=== PATIENT | male | born 1955 | race Two or more races ===

== ENCOUNTER 2018-05-13 16:10 | Inpatient (IN) | payer OTHER ==
[2018-05-13] MEDS ORDERED: ASPIRIN 81 MG CHEWABLE TAB PO ONE (16:22)
[2018-05-13] MEDS ORDERED: NS 500 ML IV ONE (16:22)
[2018-05-13] MEDS ORDERED: fentaNYL 100 MCG/2 ML INJ IVP ONE (16:27)
--- NOTE | 2018-05-13 16:59 | EDPHY ---
H & P Stated Complaint: afib and multi s/s since Friday.neck/shoulder pain since Friday Time Seen by Provider: 05/13/18 16:14 HPI/ROS: CHIEF COMPLAINT: Neck pain, shoulder pain, leg weakness, jittery HISTORY OF PRESENT ILLNESS: This is a 63-year-old male who was diagnosed with new onset atrial fibrillation today when he went to see his primary care physician. His physician office visit was prompted by complaints of pain across his posterior neck and shoulders which had been present for 6 days, the along with numbness and tingling into his bilateral arms, left greater than right. Patient had tried ibuprofen, Epson salt, heating pad, and ice physician' s office today, they noted an irregularly irregular heart rate and diagnosis atrial fibrillation on EKG. Patient was given referral to [facility], placed on Lovenox as well as Coumadin, and also had x-rays of his cervical spine obtained to evaluate for degenerative disease. He returns to the emergency department this afternoon reporting that while at home the pain in his back and shoulders increased significantly, he felt jittery , and he had significant numbness in his left upper extremity. He denies any chest pain or shortness of breath. He denies any nausea, vomiting , or diarrhea. No headache. No visual complaints. He denies any lightheadedness. REVIEW OF SYSTEMS: A comprehensive 10 system review of systems was reviewed and is otherwise negative aside from elements mentioned in the history of present illness. PAST MEDICAL HISTORY: Hypertension, on lisinopril, hydrochlorothiazide, and amlodipine. Hypothyroidism. SOCIAL HISTORY: Former cigar smoker. Patient is retired. 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 VITAL SIGNS Reviewed by me. GENERAL: Well-developed, well-nourished, appears uncomfortable. HEENT: Atraumatic. Eyes: No icterus, no injection. Mouth: moist mucous membranes. No erythema or lesions. Neck: supple with no adenopathy. No JVD. No midline tenderness palpation. LUNGS: Clear to auscultation bilaterally, no wheezes, rhonchi or rales. CARDIAC: Irregularly irregular. No rubs murmurs or gallops auscultated. Femoral pulses are 2+ and equal bilaterally. ABDOMEN: Soft, nontender, nondistended, bowel sounds normal. BACK: No CVA tenderness. EXTREMITIES: No trauma. No edema. Range of motion is normal throughout. NEURO: Alert and oriented x3. 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 Sensation intact to light touch throughout. Patient reports earlier today he was shuffling and his legs felt like they were paralyzed, currently, moving all extremities x4 without difficulty. SKIN: Warm and dry, no rash. PSYCHIATRIC: Normal mentation, uncomfortable when he has increased pain in his shoulders. - Medical/Surgical History Hx Cardiac Disease: Yes Other PMH: Afib new 2017. HTN. Hypothyroid Constitutional: Initial Vital Signs Temperature (C) 36.4 C 05/13/18 16:16 Heart Rate 115 H 05/13/18 16:16 Respiratory Rate 22 H 05/13/18 16:16 Blood Pressure 133/94 H 05/13/18 16:16 O2 Sat (%) 95 05/13/18 16:16 O2 Delivery Mode Nasal Cannula O2 (L/minute) 2 Allergies/Adverse Reactions: No Known Allergies Allergy (Unverified 05/13/18 16:26) Home Medications: Medication Instructions Recorded Coumadin 05/13/18 Enoxaparin 05/13/18 Hydrochlorothiazide 05/13/18 Levothyroxine Sodium 05/13/18 Lisinopril 05/13/18 amLODIPine BESYLATE 05/13/18 Medical Decision Making - Diagnostics EKG Interpretation: 12-LEAD EKG: Please see the full report in [facility]. My interpretation: Atrial fibrillation, borderline T-wave abnormalities. Imaging Results: Imaging Impressions Chest X-Ray 05/13/18 16:23 Impression: 1. No acute pulmonary disease. 2. No pneumothorax. Chest/Thorax CTA 05/13/18 17:08 Impression: 1. Normal caliber thoracic and abdominal aorta. No aneurysm or dissection. 2. Minimal atherosclerotic plaque in the thoracic aorta and mild to moderate atherosclerotic plaque in the abdominal aorta. No flow-limiting stenosis or penetrating ulcer. 3. Widely patent visceral and pelvic arteries. 4. Clear lungs. No acute pulmonary process or explanation for pain. 5. Minimal hepatic steatosis. 6. Diverticulosis descending colon. 7. No acute intraabdominal process. Findings discussed with Emergency Department physician, Yvette Pierre M.D., on May 13, 2018 at 1755. ED Course/Re-evaluation: 63-year-old gentleman presenting to the emergency department with newly diagnosed atrial fibrillation. His primary complaint involves discomfort across the posterior upper shoulders, base of his neck. He also reports significant numbness into the right and left hands, left greater than right. He also reports that when he stood up at home he had numbness and tingling radiating down the back of both legs. Evaluation the emergency department: EKG demonstrating atrial fibrillation with a rate of 110s. Patient's O2 sat on room air was 95%. He was placed on 2 L of O2 and given aspirin 324 mg. Patient's bedside troponin was 0. Patient's heart rate diminished on its own to a median of 90s to 100. Patient reports the discomfort in his neck, shoulders, and arm was decreasing. Chest x-ray demonstrates no wide mediastinum. Because of the patient's history of new onset cardiac findings in association with shoulder, arm pain, and neurologic symptomatology, CT scan to evaluate for dissection was ordered. Patient appears significantly uncomfortable at various points during the evaluation. CT scan was negative for obstruction and negative for pulmonary emboli. Patient will be admitted to [facility], PCU, for ongoing monitoring of his atrial fibrillation, serial troponins, completion of a cardiac evaluation to include echocardiogram, as well as further evaluation of his relatively acute neck, shoulder pain and arm pain. Course discussed with Dr. Carl Figueroa. Differential Diagnosis: Differential diagnoses for the patient's symptom complex was considered including but not limited to atrial fibrillation with RVR, anginal equivalent, dissection, disc herniation, acute coronary syndrome. Consult/Admit Bed Type: Dr. Carl Figueroa, PCU - Data Points Laboratory Results: 05/13/18 05/13/18 05/13/18 16:25 16:24 16:19 POC Sodium 141 mEq/L mEq/L (135-145) POC Potassium 4.3 mEq/L mEq/L (3.3-5.0) POC Chloride 103.0 mEq/L mEq/L (97-110) POC Total CO2 23 mEq/L mEq/L (22-31) POC BUN 16 mg/dL mg/dL (7-23) POC Creatinine 0.8 mg/dL mg/dL (0.7-1.3) POC Glucose 107 mg/dL H mg/dL (70-100) POC Calcium 9.4 mg/dL mg/dL (8.5-10.4) POC Troponin I 0.00 ng/mL ng/mL (0.00-0.08) NT-Pro-B Natriuret Pep Pending Medications Given: Discontinued Medications Aspirin (Aspirin) 324 mg PO EDNOW ONE Stop: 05/13/18 16:23 Last Admin: 05/13/18 16:27 Dose: 324 mg Fentanyl (Sublimaze) 50 mcg IVP EDNOW ONE Stop: 05/13/18 16:28 Last Admin: 05/13/18 16:30 Dose: Not Given Sodium Chloride (Ns) 500 mls @ 1,000 mls/hr IV EDNOW ONE PRN Reason: Protocol Stop: 05/13/18 16:51 Last Admin: 05/13/18 16:34 Dose: 500 mls Point of Care Test Results: CBC CBC Collection Date 05/13/18 CBC Collection Time 16:19 WBC 11.6 RBC 4.95 HGB 16.8 HCT 46.6 PLT 329 Neut # 7.5 Neut 64.7 LYMPH # 3.4 LYMPH 29.4 Other WBC # 0.7 Other WBC 5.9 MCV 94.1 Chemistry 05/13/18 05/13/18 16:25 16:24 POC Sodium 141 mEq/L mEq/L (135-145) POC Potassium 4.3 mEq/L mEq/L (3.3-5.0) POC Chloride 103.0 mEq/L mEq/L (97-110) POC Total CO2 23 mEq/L mEq/L (22-31) POC BUN 16 mg/dL mg/dL (7-23) POC Creatinine 0.8 mg/dL mg/dL (0.7-1.3) POC Glucose 107 mg/dL H mg/dL (70-100) POC Calcium 9.4 mg/dL mg/dL (8.5-10.4) POC Troponin I 0.00 ng/mL ng/mL (0.00-0.08) D-Dimer D-Dimer Collection Date 05/13/18 D-Dimer Collection Time 16:19 D-Dimer (ng/ml) Less than 100 Departure - [facility] Clinical Impression: Left arm numbness, r/o ACS Atrial fibrillation Qualifiers: Atrial fibrillation type: unspecified Qualified Code(s): I48.91 - Unspecified atrial fibrillation Shoulder pain, bilateral Qualifiers: Chronicity: acute Qualified Code(s): M25.511 - Pain in right shoulder; M25.512 - Pain in left shoulder; M25.512 - Pain in left shoulder Condition: Fair
[2018-05-13] MEDS ORDERED: IOPAMIDOL (ISOVUE 370) 100 ML BTL IV ONE (17:12)
[2018-05-13] MEDS ORDERED: PROMETHAZINE HCL 25 MG/ML INJ IVP PRN (20:02)
[2018-05-13] MEDS ORDERED: ONDANSETRON 4 MG/2 ML VIAL IVP PRN (20:02)
[2018-05-13] MEDS ORDERED: oxyCODONE IR 5 MG TAB PO PRN (20:02)
[2018-05-13] MEDS ORDERED: ONDANSETRON DISINTEGRATING 4 MG TAB PO PRN (20:02)
[2018-05-13] MEDS ORDERED: ACETAMINOPHEN 325 MG TAB PO PRN (20:02)
[2018-05-13] MEDS ORDERED: ENOXAPARIN 80 MG/0.8 ML SYR SC SCH (21:45)
[2018-05-13 21:59] LABS: PLATELET COUNT 304 10^3/uL (150-400)
[2018-05-13] MEDS ORDERED: ENOXAPARIN 100 MG/ML SYR SC SCH (22:30)
--- NOTE | 2018-05-13 22:40 | PDGENHP ---
History and Physical - Chief Complaint neck/shoulder pain/weakness - History of Present Illness 63 yo M with hx of htn, hypothyroidism presenting with c/o neck, shoulder and back pain with numbness and tingling in bilateral hands, left greater than right , and numbness and weakness of bilateral legs since Friday. He notes these sxs have been coming and going since Friday, but more persistent in the last several days. He finally decided to go see his PCP today and was noted to be in A fib with rates in the 110s. This was a new diagnosis for him and he was started on coumadin/LMWH and had an appt for an echo and to see cardiology set up. Unfortunately, when he went home he continued to have these sxs and he was really unable to walk, he notes he was "dragging his legs" and continued ot have intermittent tingling in his hands and down the back of his legs. He notes he does not have chronic neck or back pain, he has not had any injury recently, has no changes in urination or BM. He has not had fever or chills, denies chest pain or sob. He has never had similar issues in the past. Currently other than feeling generally weak he notes that a lot of these sxs have improved. History Information - Allergies/Home Medication List Allergies/Adverse Reactions: No Known Allergies Allergy (Unverified 05/13/18 16:26) Home Medications: Enoxaparin [Lovenox 100 MG (*)] 100 mg SQ Q12H 05/13/18 [Last Taken Unknown] Hydrochlorothiazide [HCTZ (*)] 25 mg PO DAILY 05/13/18 [Last Taken 05/13/18] Levothyroxine [Synthroid 112 mcg (*)] 112 mcg PO DAILY06 05/13/18 [Last Taken ] Lisinopril [Zestril 40 mg (*)] 40 mg PO DAILY 05/13/18 [Last Taken 05/13/18] Warfarin Sodium [Coumadin 5MG (*)] 5 mg PO DAILY16 05/13/18 [Last Taken Unknown] amLODIPine BESYLATE [Norvasc 10 mg (*)] 10 mg PO DAILY 05/13/18 [Last Taken ] I have personally reviewed and updated: family history, medical history, social history, surgical history - Past Medical History atrial fibrillation (new diagnosis), hypertension Additional medical history: hypothyroid - Surgical History Reports: no pertinent surgical hx - Family History Additional family history: brother with valvular heart disease - Social History Smoking Status: Current every day smoker Tobacco Use: Cigar Alcohol Use: Rarely Drug Use: None Additional social history: , 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 [employer] Review of Systems Review of Systems: ROS: 10pt was reviewed & negative except for what was stated in HPI & below Physical Exam Physical Exam: Temp Pulse Resp BP Pulse Ox 36.6 C 90 18 146/96 H 99 05/13/18 20:06 05/13/18 20:06 05/13/18 20:06 05/13/18 20:06 05/13/18 20:06 O2 (L/minute) 2 Constitutional: no apparent distress, appears nourished Eyes: PERRL Ears, Nose, Mouth, Throat: moist mucous membranes, hearing normal Cardiovascular: no murmur, rub, or gallop, irregularly irregular, No edema Respiratory: no respiratory distress, no rales or rhonchi Gastrointestinal: normoactive bowel sounds, soft, non-tender abdomen Genitourinary: no bladder tenderness Skin: warm, normal color Musculoskeletal: full muscle strength Neurologic: AAOx3 Psychiatric: interacting appropriately, not anxious, not encephalopathic Lab Data & Imaging Review 05/13/18 20:52 05/13/18 20:52 WBC 10.28 10^3/uL (3.80-9.50) H 05/13/18 20:52 RBC 4.74 10^6/uL (4.40-6.38) 05/13/18 20:52 Hgb 15.5 g/dL (13.7-17.5) 05/13/18 20:52 Hct 44.8 % (40.0-51.0) 05/13/18 20:52 MCV 94.5 fL (81.5-99.8) 05/13/18 20:52 MCH 32.7 pg (27.9-34.1) 05/13/18 20:52 MCHC 34.6 g/dL (32.4-36.7) 05/13/18 20:52 RDW 13.1 % (11.5-15.2) 05/13/18 20:52 Plt Count 304 10^3/uL (150-400) 05/13/18 20:52 MPV 9.3 fL (8.7-11.7) 05/13/18 20:52 Neut % (Auto) 56.7 % (39.3-74.2) 05/13/18 20:52 Lymph % (Auto) 32.9 % (15.0-45.0) 05/13/18 20:52 [place] % (Auto) 6.2 % (4.5-13.0) 05/13/18 20:52 Eos % (Auto) 3.3 % (0.6-7.6) 05/13/18 20:52 Baso % (Auto) 0.5 % (0.3-1.7) 05/13/18 20:52 Nucleat RBC Rel Count 0.0 % (0.0-0.2) 05/13/18 20:52 Absolute Neuts (auto) 5.83 10^3/uL (1.70-6.50) 05/13/18 20:52 Absolute Lymphs (auto) 3.38 10^3/uL (1.00-3.00) H 05/13/18 20:52 Absolute Monos (auto) 0.64 10^3/uL (0.30-0.80) 05/13/18 20:52 Absolute Eos (auto) 0.34 10^3/uL (0.03-0.40) 05/13/18 20:52 Absolute Basos (auto) 0.05 10^3/uL (0.02-0.10) 05/13/18 20:52 Absolute Nucleated RBC 0.00 10^3/uL (0-0.01) 05/13/18 20:52 Immature Gran % 0.4 % (0.0-1.1) 05/13/18 20:52 Immature Gran # 0.04 10^3/uL (0.00-0.10) 05/13/18 20:52 POC Sodium 141 mEq/L (135-145) 05/13/18 16:25 Sodium 133 mEq/L (135-145) L 05/13/18 20:52 POC Potassium 4.3 mEq/L (3.3-5.0) 05/13/18 16:25 Potassium 4.2 mEq/L (3.3-5.0) 05/13/18 20:52 POC Chloride 103.0 mEq/L (97-110) 05/13/18 16:25 Chloride 102 mEq/L (97-110) 05/13/18 20:52 Carbon Dioxide 24 mEq/l (22-31) 05/13/18 20:52 POC Total CO2 23 mEq/L (22-31) 05/13/18 16:25 Anion Gap 7 mEq/L (6-14) 05/13/18 20:52 POC BUN 16 mg/dL (7-23) 05/13/18 16:25 BUN 19 mg/dL (7-23) 05/13/18 20:52 Creatinine 0.8 mg/dL (0.7-1.3) 05/13/18 20:52 POC Creatinine 0.8 mg/dL (0.7-1.3) 05/13/18 16:25 Estimated GFR > 60 05/13/18 20:52 Glucose 95 mg/dL (70-100) 05/13/18 20:52 POC Glucose 107 mg/dL (70-100) H 05/13/18 16:25 POC Calcium 9.4 mg/dL (8.5-10.4) 05/13/18 16:25 Calcium 9.0 mg/dL (8.5-10.4) 05/13/18 20:52 POC Troponin I 0.00 ng/mL (0.00-0.08) 05/13/18 16:24 Troponin I < 0.012 ng/mL (0.000-0.034) 05/13/18 20:52 NT-Pro-B Natriuret Pep 250 pg/mL (0-125) H 05/13/18 16:19 TSH 4.430 uIU/mL (0.465-4.680) 05/13/18 20:52 Urine Color YELLOW 05/13/18 21:55 Urine Appearance CLEAR 05/13/18 21:55 Urine pH 5.0 (5.0-7.5) 05/13/18 21:55 Ur Specific [place] > 1.035 (1.002-1.030) H 05/13/18 21:55 Urine Protein NEGATIVE (NEGATIVE) 05/13/18 21:55 Urine Ketones NEGATIVE (NEGATIVE) 05/13/18 21:55 Urine Blood NEGATIVE (NEGATIVE) 05/13/18 21:55 Urine Nitrate NEGATIVE (NEGATIVE) 05/13/18 21:55 Urine Bilirubin NEGATIVE (NEGATIVE) 05/13/18 21:55 Urine Urobilinogen NEGATIVE EU (0.2-1.0) 05/13/18 21:55 Ur Leukocyte Esterase NEGATIVE (NEGATIVE) 05/13/18 21:55 Urine Glucose NEGATIVE (NEGATIVE) 05/13/18 21:55 Visualized and Interpreted Chest x-ray results: Yes Chest X-Ray results: no infiltrate Visualized and Interpreted imaging results: Yes Interpretation: CTA chest/abdomen: no dissection, no PE Visualized and Interpreted EKG results: Yes EKG additional interpertation: atrial fibrillation, rate in 100s Assessment & Plan Assessment: Atrial fibrillation (Acute) Shoulder pain, bilateral (Acute) Left arm numbness (Acute) 63 yo M with new dx of a fib presenting with generalized weakness, bilateral upper and lower extremity numbness/tingling and neck and shoulder pain # a fib: with rates in the low 100s but suspect this is the etiology for patients diffuse sxs, plan is for monitoring on tele, serial trops and ecg, echocardiogram in the am. Will continue lovenox which was ordered by his PCP but not started yet and will ask for cardiology consult. Will keep patient NPO after MN in case CV felt appropriate, started on low dose metoprolol for improved rate control. # weakness/numbness/gait instability/neck pain: with a very reassuring neuro exam with strength/sensation and coordination intact and symmetrical making the possibility of a primary neurologic issue less likely. Given that the numbness is bilateral (though left more than right) and both upper and lower extremity it seems unlikely to be due to nerve impingement etc either. At this point, suspect this could be an unusual symptomatic presentation of a fib, no s/s of infection but will get UA, w/u for a fib as above. If treatment of a fib does not resolve these sxs would consider further imaging and/or neuro consult. # HTN: will resume home medications, BP only mildly elevated so will need to monitor with addition of BB # hypothyroid: continue lt4, will get TSH # observation status Patient new to my care. Old records reviewed and summarized as above. Care plan reviewed with ER doctor as above. Further hx obtained from patients present at bedside.
[2018-05-13] MEDS: METOPROLOL TARTRATE 25 MG TAB PO SCH (22:57)
[2018-05-14] MEDS: ENOXAPARIN 100 MG/ML SYR SC SCH ×2 (09:22→21:25)
[2018-05-14] MEDS: METOPROLOL TARTRATE 25 MG TAB PO SCH ×2 (09:24→21:24)
--- NOTE | 2018-05-14 10:36 | ECHO ---
[email or web address] [address] [address] Main: [phone] Fax: Transthoracic Echocardiogram Name: KIN EDMONDS MR#: [id number] Study Date: 05/14/2018 Study Time: 08:16 AM Date of : 1955 Age: 63 year(s) Height: 162.6 cm (64 in.) Weight: 89.81 kg (198 lb.) BSA: 1.95 m2 Gender: Male Examination: Echo Indication: New onset of atrial fibrillation Image Quality: Contrast: Requested by: Carl Tate BP: 115 mmHg/77 mmHg Heart Rate: Rhythm: Indication: New onset of atrial fibrillation Procedure Staff [place] Packer: Milad Gonzalez RDCS Reading Physician: Binh Amado MD Requesting Provider: Conclusions: Normal size left ventricle. Mild concentric LV hypertrophy. The ejection fraction is estimated to be 45-50 %. No regional wall motion abnormality. Normal RV function. There is no aortic valve regurgitation. No aortic valve stenosis is present. pt was in atrial fibrillation throughtout study. Measurements: Chambers Valvular Assessment AV/MV Valvular Assessment TV/PV Normal Normal Normal Name Value Range Name Value Range Name Value Range Ao Awa (MM): 3.4 cm (2.2 cm-3.7 AV Vmax: 1.15 m/s (1 m/s-1.7 TR Vmax: 2.01 mm/s ( - ) cm) m/s) TR PGmax: 16 mmHg ( - ) IVSd (2D): 1.2 cm (0.6 cm-1.1 AV maxP mmHg ( - ) syst. PAP: 21 mmHg ( - ) cm) LVOT Vmax: 0.62 m/s (0.7 m/s-1.1 PV Vmax: 0.69 m/s (0.6 m/s-0.9 LVDd (2D): 4.4 cm (4.2 cm-5.9 m/s) m/s) cm) MV E Vmax: 0.74 m/s ( - ) PV PGmax: 2 mmHg ( - ) LVDs (2D): 3.2 cm (2.1 cm-4 cm) LVPWd (2D): 1.2 cm (0.6 cm-1 cm) LVEF (MM): 46 (>=55 %) Visual EF: 45 % EF Range: 45-50 % Continued Measurements: Chambers Valvular Assessment AV/MV Valvular Assessment TV/PV Patient: KIN EDMONDS Study Date: 05/14/2018 Page 1 of 2 08:16 AM Name Value Name Value Name Value LADs Lon.4 cm MV E' Septal: 0.07 m/s CVP (est.): 5 mmHg LA Area: 23.5 cm2 MV E/E' Septal: 10.30 LA Volume: 61 ml MV E/E' Lateral: 7.80 LA Volume Index: 31.3 ml/m2 RA Area: 16.4 cm2 Findings: Left Ventricle: Normal size left ventricle. Mild concentric LV hypertrophy. Mildly to moderately reduced systolic funtion. The ejection fraction is estimated to be 45-50 %. The ejection fraction is visually estimated to be 45 %. No regional wall motion abnormality. Normal diastolic LV function. Right Ventricle: Normal size right ventricle. Normal RV function. Left Atrium: The left atrium is normal in size. Right Atrium: The right atrium is normal in size. Mitral Valve: The mitral valve is normal in appearance and function. There is no significant mitral valve regurgitation. Aortic Valve: Aortic valve is not well visualized. There is no aortic valve regurgitation. No aortic valve stenosis is present. Tricuspid Valve: The tricuspid valve is normal in appearance and function. Pulmonic Valve: The pulmonic valve is normal in appearance and function. Aorta: The aorta is normal. Pericardium: No pericardial effusion. Exam Comments: pt was in atrial fibrillation throughtout study. (No Signature Object) Patient: KIN EDMONDS Study Date: 05/14/2018 Page 2 of 2 08:16 AM [id number]
--- NOTE | 2018-05-14 10:36 | GHP ---
DATE OF ADMISSION: 05/13/2018 CHIEF COMPLAINT: Atrial fibrillation. HISTORY OF PRESENT ILLNESS: This is a 63-year-old gentleman with no known history of atrial fibrilla tion. He was seen yesterday in his physician's office for diffuse muscle aches and pains and tinglin g and an EKG confirmed atrial fibrillation. He was to begin Lovenox and Coumadin tomorrow with outpa tient referral to Cardiac Clinic at [facility]. However, when he got home he had with sounds like spasm in his neck, arms, and legs, came to the emergency room. EKG confirmed atrial fibrillation. He was admitted, is doing well. His BNP is normal. His cardiac enzymes are normal. He has been in atrial fibrillation overnight. In speaking to him, he had an event a month ago of dehydration, but c annot otherwise confirm any syncope or CHF signs or symptoms. He feels better today. He received hi s Lovenox and his Coumadin. In speaking to him, he has chronic baseline arthritis, but just over the weekend started to feel worse with these diffuse muscle aches and pains. Today he is feeling better . He had a CT of the abdomen, chest, and thorax, which were not unremarkable for any blood clots. Antione galdamez has had no CVAs or other issues. I spoke about our options. At this point, we will continue antic oagulation. He is under good rate control at this time. We will consider ARABELLA cardioversion. Star poon, I would like to get a transthoracic echocardiogram prior. He denies any known CAD. PAST MEDICAL HISTORY: Hypothyroidism. REVIEW OF SYSTEMS: Negative for any GI, , blood loss, or other issues. FAMILY HISTORY: Apparently his brother has a bicuspid aortic valve. SOCIAL HISTORY: He smokes cigars. He is retired from the [employer] service where he walked [employer]. He continues to work part-time at [employer] PHYSICAL EXAMINATION: VITAL SIGNS: Blood pressure is 130/88, and his pulse rate in the 70s, and it is atrial fibrillation. GENERAL: He is an elderly male in no acute distress. Mouth was moist. NEC K: Supple. LUNGS: Clear to auscultation. CARDIOVASCULAR: Regular rate and rhythm. I could not h ear loud murmur, gallop, rub. ABDOMEN: Soft, nontender. MUSCULOSKELETAL: No cyanosis, clubbing, o r edema. ASSESSMENT AND PLAN: 1. Atrial fibrillation, unknown chronicity. Patient has recently been started on Lovenox and 1st do se of Coumadin. 2. Patient is hemodynamically stable without symptoms. At this point, we will start off with a rose sthoracic echocardiogram for further evaluation. Would consider transesophageal echocardiogram cardi oversion if he does not convert on current medications. The timing of this can be decided depending on how he is feeling. 3. History of diffuse arthritis and muscle aches and pains. This will be followed by primary care hui victor. Further care pending clinical course. /[id number]/MODL
--- NOTE | 2018-05-14 11:27 | ASMTCMCOM ---
CM Note CM Note Notes: Pts case discussed in tx rounds. Pt is a 63 y/o man admitted for new afib. PT has been ordered and awaiting recommendations. Pt may have a possible cardioversion tomorrow. Needs are TBD at this time. CM to follow. Plan: TBD Date Signed: 05/14/2018 11:26 AM Electronically Signed By:ANGIE Salazar
--- NOTE | 2018-05-14 13:36 | HOSPPROG ---
Hospitalist Progress Note Assessment/Plan: * New onset afib - tachy taj with HR ranging 40-120 -continue low dose metoprolol -lovenox bridge to warfarin -ARABELLA/cardioversion in am * Acute systolic CHF - EF 45% * UE numbness and weakness with cervical neck pain -check MRI C-spine * HTN -holding norvasc, lisinopril, HCTZ -BP running low - ? too much meds causing weakness * Obesity BMI 34 Subjective: No new complaints. Objective: Vital Signs Temp Pulse Resp BP Pulse Ox 36.4 C 86 18 109/77 96 05/14/18 12:38 05/14/18 12:38 05/14/18 12:38 05/14/18 12:38 05/14/18 12:38 Laboratory Results 05/13/18 20:52 05/13/18 20:52 05/13/18 05/14/18 05/15/18 05:59 05:59 05:59 Intake Total 550 Balance 550 EKG viewed, my personal interpretation is - afib, no ischemic change CTA chest/abd - normal vessels - Physical Exam Constitutional: no apparent distress, appears nourished, not in pain Cardiovascular: irregularly irregular, tachycardia, bradycardia, No systolic murmur, No edema Respiratory: no respiratory distress, no rales or rhonchi, clear to auscultation Gastrointestinal: normoactive bowel sounds, soft, non-tender abdomen, no palpable masses Skin: no rashes or abrasions, no fluctuance, no induration Neurologic: AAOx3, sensation intact bilaterally Psychiatric: interacting appropriately, not anxious, not encephalopathic, thought process linear ICD10 Worksheet Patient Problems: Problems Problem Status Onset Atrial fibrillation Acute Left arm numbness Acute Shoulder pain, bilateral Acute
--- NOTE | 2018-05-14 15:45 | PDMN ---
Medical Necessity Medical necessity: Change to IP, as of 05/14/18, per MD & MCG [id number]; los >2 mn for ongoing management of new-onset AFIB w/tachycardia/bradycardia (HR ranging from 40-120) & upper extremity numbness/weakness; requiring further cardiac monitoring, ARABELLA/cardioversion, MRI, med management & therapies; hx CHF, HTN
[2018-05-14] MEDS ORDERED: WARFARIN SODIUM 5 MG TAB PO SCH (16:00)
--- NOTE | 2018-05-14 23:04 | CPEKG ---
Test Reason : OPEN Blood Pressure : / mmHG Vent. Rate : 102 BPM Atrial Rate : 099 BPM P-R Int : 052 ms QRS Dur : 090 ms QT Int : 376 ms P-R-T Axes : 000 -25 017 degrees QTc Int : 490 ms Atrial fibrillation Borderline left axis deviation Borderline T wave abnormalities Borderline prolonged QT interval Confirmed by Yvette Pierre ([id number]) on 05/14/2018 11:04:22 PM Referred By: Confirmed By:Yvette Pierre
[2018-05-15 04:25] LABS: INR 1.12 (0.83-1.16); PROTIME(PATIENT) 14.6 SEC (12.0-15.0)
[2018-05-15] MEDS: LEVOTHYROXINE 112 MCG TAB PO SCH (06:03)
--- NOTE | 2018-05-15 08:54 | CPEKG ---
Test Reason : OPEN Blood Pressure : / mmHG Vent. Rate : 074 BPM Atrial Rate : 130 BPM P-R Int : 152 ms QRS Dur : 092 ms QT Int : 389 ms P-R-T Axes : 268 -13 -08 degrees QTc Int : 432 ms Atrial fibrillation Confirmed by Harley Jimenez ([id number]) on 05/15/2018 8:54:25 AM Referred By: Confirmed By:Harley Jimenez
[2018-05-15] MEDS: LISINOPRIL 40 MG TAB PO SCH (09:44)
[2018-05-15] MEDS: METOPROLOL TARTRATE 25 MG TAB PO SCH ×2 (09:45→21:14)
--- NOTE | 2018-05-15 11:48 | SOAPPROG ---
[facility] Progress Note Assessment/Plan: Assessment:1. atrial fib..unclear etiology..hemodynamically stable ...no recent mi...rate controlled..needs urgent neurosurgical surgery ...lovenox held today in anticipation of surgery Plan:1. neuro surgery as they plan..can follow afib post op and as out pt 05/15/18 11:52 Subjective: pt is asymptomatic from cv standpoint,,,neg trop and low normal lvef with minimmal bnp elevation pt should be at low to mod risk for cardiac complications.....d/w pt and Objective: Vital Signs Temp Pulse Resp BP Pulse Ox 36.4 C 84 15 126/83 H 96 05/15/18 07:26 05/15/18 07:26 05/15/18 07:26 05/15/18 09:45 05/15/18 07:26 05/14/18 05/15/18 05/16/18 05:59 05:59 05:59 Intake Total 450 Balance 450 PT 14.6 SEC (12.0-15.0) 05/15/18 04:00 INR 1.12 (0.83-1.16) 05/15/18 04:00 Physical Exam - Physical Exam Respiratory: lungs clear Cardiac/Chest: regular rate, rhythm ICD10 Worksheet Patient Problems: Problems Problem Status Onset Atrial fibrillation Acute Left arm numbness Acute Shoulder pain, bilateral Acute
[2018-05-15] MEDS ORDERED: BACITRACIN 50,000 UNITS/10 ML SYR IRR ONE (13:37)
[2018-05-15] MEDS ORDERED: THROMBIN (BOVINE) 20,000 UNIT VIAL TP ONE (13:37)
[2018-05-15] MEDS ORDERED: CHLORHEXIDINE GLUC HIBICLENS 118 ML BTL TP ONE (13:38)
--- NOTE | 2018-05-15 13:48 | GCON ---
DATE OF CONSULTATION: 05/15/2018 REASON FOR CONSULTATION: Left arm numbness and gait instability. HOSPITAL COURSE, HISTORY, AND MAJOR MEDICAL FINDINGS: The patient is a 63-year- old gentleman who presented to [facility] Emergency Room on 05/13/2018 with neck pain, shoulder pain, back pain, and numbness and tingling to his bilateral hands, left greater than right, numbness and weakness into his bilateral legs since Friday. He notes that these symptoms had been coming and going prior to Friday, but it had been more persistent over the last few days. He went to his primary care office on the and was noted to be in atrial fibrillation in the one-teens. 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 Unfortunately, when he went home, this intermittent tingling in legs continued, and he was feeling generally weak. The patient has had some urinary dribbling, but denies any groin numbness, trung incontinence, or any stool incontinence. REVIEW OF SYSTEMS: Review of systems is negative, other than what is stated in the HPI. Please see pertinent negatives and pertinent positives. PAST MEDICAL HISTORY: Significant for hypertension, hyperthyroidism, and a new diagnosis of atrial fibrillation. PAST SURGICAL HISTORY: Negative. FAMILY HISTORY: The patient has valvular heart disease in his brother. SOCIAL HISTORY: The patient is a current everyday smoker. He does smoke cigars. He is and works part-time. ALLERGIES: No known drug allergies. HOME MEDICATIONS: Include Lovenox 100 mg subcu q.24 hours, HCTZ 25 mg p.o. daily, Synthroid 112 mcg p.o. daily, lisinopril 40 mg 1 p.o. daily, Coumadin 5 mg, and Norvasc 10 mg 1 p.o. daily. PHYSICAL EXAM: VITALS: BP 126/83. Heart rate is 84. He is 96% on room air. Temp is 36.4. GENERAL: The patient is in no acute distress. He is alert and oriented x3. He answers all questions appropriately, and his affect is appropriate to the given situation. NEUROLOGIC: Cranial nerves 2-12 are grossly intact. EOMI and PERRLA. The patient is a 5/5 in his deltoids, triceps , biceps, wrist flexors, extensors, interossei. 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 He has decreased sensation over his left arm. The patient is a 5/5 in his iliopsoas, hamstrings, quadriceps, plantar flexion, dorsiflexion, and EHL bilaterally. Reflexes: The patient does have a positive Bailey's on the left, bilateral 3-beat clonus. His patellar reflexes and his brachioradialis reflexes are 3+. Sensation is intact, other than his left upper extremity where he has some decreased sensation. DIAGNOSTIC REVIEW: The patient underwent an MRI of his cervical spine, which demonstrated at C3-4 there is severe central canal stenosis with compression of the cord both ventrally and dorsally. There is edema in the cord directly below this level. There is some degenerative spondylosis C3 to C7. ASSESSMENT AND PLAN: The patient is a 63-year-old gentleman who presented to [facility] Emergency Room with new numbness, pain, weakness and symptoms concerning for myelopathy, including imbalance. He underwent an MRI which demonstrated severe canal stenosis with cord signal changes at C3-4. The patient was recently started on anticoagulation for his atrial fibrillation, but has not become therapeutic on this yet. We discussed with Cardiology if the patient is cleared to undergo surgery, and at this time, we would recommend , given his symptoms, him undergoing an anterior cervical diskectomy and fusion at C3-4. The risks, benefits, and alternatives were thoroughly discussed with the patient. His consents were signed, and questions were answered. He was seen both by Dr. Mora and myself. I did discuss with Cardiology that we would like to hold his Coumadin for 5-7 days post surgery, and this has been cleared. /[id number]/MODL MTDD
--- NOTE | 2018-05-15 13:55 | ASMTCMCOM ---
CM Note CM Note Notes: Pts case discussed in tx rounds. PT has cleared pt to d/c home without any needs. No other needs at this time. CM available for changes. Plan: Independent Date Signed: 05/15/2018 01:54 PM Electronically Signed By:ANGIE Salazar
--- NOTE | 2018-05-15 14:35 | PDHPUP ---
History & Physical Update H&P update statement: This history and physical update is based on an assessment of the patient which was completed after admission or registration (within 24 hours), but prior to the surgery/procedure. H&P update: H&P reviewed & patient examined, no change in patient's condition since H&P completed
[2018-05-15] MEDS ORDERED: ceFAZolin 2 GM/DEXTROSE 100 ML IV ONE (14:44)
[2018-05-15] MEDS ORDERED: MIDAZOLAM 2 MG/2 ML VIAL IVP ONE (15:09)
--- NOTE | 2018-05-15 15:10 | PDANEPAE ---
ANE History of Present Illness here for C3-4 ACDF ANE Past Medical History - Cardiovascular History Hx Hypertension: No Hx Arrhythmias: Yes Hx Chest Pain: No Hx Coronary Artery / Peripheral Vascular Disease: No Hx CHF / Valvular Disease: No Hx Palpitations: No Cardiovascular History Comment: new onset afib, cleared by cards EF45% - Pulmonary History Hx COPD: No Hx Asthma/Reactive Airway Disease: No Hx Recent Upper Respiratory Infection: No Hx Oxygen in Use at Home: No Hx Sleep Apnea: No Sleep Apnea Screening Result - Last Documented: Negative - Endocrine History Hx Diabetes: No Hypothyroid: No Hyperthyroid: No - Renal History Hx Renal Disorders: No - Liver History Hx Hepatic Disorders: No - Chronic Pain History Chronic Pain: Yes ANE Review of Systems Review of systems is: negative Review of Systems: - Exercise capacity Exercise capacity: >=4 METS ANE Patient History - Allergies Allergies/Adverse Reactions: No Known Allergies Allergy (Unverified 05/13/18 16:26) - Home Medications Home medications: home medication list seen and reviewed Home Medications: Enoxaparin [Lovenox 100 MG (*)] 100 mg SQ Q12H 05/13/18 [Last Taken Unknown] Hydrochlorothiazide [HCTZ (*)] 25 mg PO DAILY 05/13/18 [Last Taken 05/13/18] Levothyroxine [Synthroid 112 mcg (*)] 112 mcg PO DAILY06 05/13/18 [Last Taken ] Lisinopril [Zestril 40 mg (*)] 40 mg PO DAILY 05/13/18 [Last Taken 05/13/18] Warfarin Sodium [Coumadin 5MG (*)] 5 mg PO DAILY16 05/13/18 [Last Taken Unknown] amLODIPine BESYLATE [Norvasc 10 mg (*)] 10 mg PO DAILY 05/13/18 [Last Taken ] - NPO status NPO Status: no food or drink >8 hours NPO Since - Liquids (Date): 05/14/18 NPO Since - Liquids (Time): 22:00 NPO Since - Solids (Date): 05/14/18 NPO Since - Solids (Time): 22:00 - Smoking Hx Smoking Status: Current every day smoker - Alcohol Use Alcohol Use: Rarely ANE Labs/Vital Signs - Labs Result Diagrams: 05/13/18 20:52 05/13/18 20:52 - Vital Signs Blood Pressure: 127/85 Heart Rate: 85 Respiratory Rate: 16 O2 Sat (%): 93 Height: 162.56 cm Weight: 89.9 kg ANE Physical Exam - Airway Neck exam: FROM Mallampati Score: Class 1 Mouth exam: poor dentition - Pulmonary Pulmonary: no respiratory distress - Cardiovascular Cardiovascular: irregularly irregular - ASA Status ASA Status: III ANE Anesthesia Plan Anesthesia Plan: general endotracheal anesthesia Specialized Airway: video laryngoscope
[2018-05-15] MEDS ORDERED: PROPOFOL/EMULSION 500 MG/50 ML BOTTLE IV ONE ×2 (15:20→16:25)
[2018-05-15] MEDS ORDERED: fentaNYL 100 MCG/2 ML INJ ONE ×4 (15:24→17:59)
[2018-05-15] MEDS ORDERED: PROPOFOL 200 MG/20 ML VIAL ONE (16:00)
[2018-05-15] MEDS ORDERED: DEXAMETHASONE 4 MG/ML VIAL IVP PRN (16:17)
[2018-05-15] MEDS ORDERED: HYDROCODONE/APAP 5/325 TAB PO PRN (16:17)
[2018-05-15] MEDS ORDERED: oxyCODONE IR 5 MG TAB PO PRN (16:17)
[2018-05-15] MEDS ORDERED: HYDROmorphONE/DILAUDID 2 MG/ML INJ IVP PRN (16:17)
[2018-05-15] MEDS ORDERED: NALOXONE HCL 0.4 MG/ML INJ IVP PRN (16:17)
[2018-05-15] MEDS ORDERED: ONDANSETRON 4 MG/2 ML VIAL IVP PRN (16:17)
[2018-05-15] MEDS ORDERED: PHENYLEPHRINE HCL 100 MCG/ML SYR ONE (16:22)
--- NOTE | 2018-05-15 17:12 | POSTOPPROG ---
Post Op Note Date of Operation: 05/15/18 Surgeon: Kimani Mora Uniform Attendant: Mallorie Anesthesia: GET(General Endotracheal) Pre-op Diagnosis: cervical stenosis C3/4 Post-op Diagnosis: cervical stenosis C3/4 Indication: UE weakness and numbness Procedure: ACDF C3/4 Inf/Abcess present in the surg proc area at time of surgery?: No Depth: Deep Incisional (Fascial) EBL: 50-100 Total fluids administered: see anesthesia record Complications: none
[2018-05-15] MEDS ORDERED: NS 1,000 ML IV SCH (17:15)
[2018-05-15] MEDS ORDERED: MAGNESIUM HYDROXIDE 30 ML UDCUP PO PRN (17:15)
[2018-05-15] MEDS ORDERED: LACTULOSE 20 GM/30 ML UDCUP PO PRN (17:15)
[2018-05-15] MEDS ORDERED: METHOCARBAMOL 750 MG TAB PO PRN (17:15)
[2018-05-15] MEDS ORDERED: POLYETHYLENE GLYCOL 3350 17 GM PKT PO PRN (17:15)
[2018-05-15] MEDS ORDERED: HYDROmorphONE/DILAUDID 1 MG/ML INJ IVP PRN (17:15)
[2018-05-15] MEDS ORDERED: BISACODYL 10 MG SUPP PR PRN (17:15)
--- NOTE | 2018-05-15 17:15 | SOAPPROG ---
SOAP Progress Note Assessment/Plan: Post Op Visit S: Awake and alert. NAD. Pt with expected neck pain O: AFVSS/PERRRLA/EOMI no droop CN 2-12 grossly intact CDI neck soft and supple 5/5 BUE/BLE = A/P: 63 yo male that is s/p ACDF C3/4 for cervical stenosis and myelopathy -call with any questions or concerns -pt understands and agrees -PT/OT/ST -no collar needed -pt seen by Dr Mora as well 05/15/18 17:13 Objective: Vital Signs Temp Pulse Resp BP Pulse Ox 36.4 C 85 16 127/85 H 93 05/15/18 13:29 05/15/18 16:17 05/15/18 16:17 05/15/18 16:17 05/15/18 16:17 05/14/18 05/15/18 05/16/18 05:59 05:59 05:59 Intake Total 450 Balance 450 PT 14.6 SEC (12.0-15.0) 05/15/18 04:00 INR 1.12 (0.83-1.16) 05/15/18 04:00 ICD10 Worksheet Patient Problems: Problems Problem Status Onset Atrial fibrillation Acute Cervical spinal stenosis Acute Left arm numbness Acute Shoulder pain, bilateral Acute - ICD10 Problem Qualifiers (1) Cervical spinal stenosis
[2018-05-15] MEDS: fentaNYL 100 MCG/2 ML INJ IVP PRN ×5 (17:19→18:34)
[2018-05-15] MEDS ORDERED: DIAZEPAM 5 MG/ML 1 ML SYR IVP PRN (17:20)
[2018-05-15] MEDS ORDERED: DIAZEPAM 5 MG/ML 1 ML SYR ONE (17:22)
--- NOTE | 2018-05-15 17:46 | HOSPPROG ---
Hospitalist Progress Note Assessment/Plan: * Severe cervical spinal stenosis with cord compression -neurosurgery consulted - to OR today * New onset afib - tachy taj with HR ranging 40-120 -continue low dose metoprolol -start anti-coagulation after surgery when okay with neurosurgery * Acute systolic CHF - EF 45% -lisinopril * HTN -holding norvasc, HCTZ -BP running low - ? too much meds * Obesity BMI 34 Subjective: No new complaints. 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 - Physical Exam Constitutional: no apparent distress, appears nourished, not in pain Cardiovascular: regular rate and rhythym, no murmur, rub, or gallop Respiratory: no respiratory distress, no rales or rhonchi, clear to auscultation Gastrointestinal: normoactive bowel sounds, soft, non-tender abdomen, no palpable masses Musculoskeletal: full muscle strength, no muscle tenderness, normal joint ROM Neurologic: AAOx3, sensation intact bilaterally Psychiatric: interacting appropriately, not anxious, not encephalopathic, thought process linear ICD10 Worksheet Patient Problems: Problems Problem Status Onset Atrial fibrillation Acute Shoulder pain, bilateral Acute Left arm numbness Acute Cervical spinal stenosis Acute
[2018-05-15] MEDS ORDERED: HYDROmorphONE/DILAUDID 2 MG/ML INJ ONE (18:24)
--- NOTE | 2018-05-15 18:26 | POSTANESTH ---
Post Anesthetic Evaluation Cardiovascular Status: Normal, Stable Respiratory Status: Normal, Stable Level of Consciousness/Mental Status: Mildly Sleepy, Arousable Pain Control: Adequate, Prn Tx Ordered Nausea/Vomiting Control: Adequate, Prn Tx Ordered Complications Possibly Related to Anesthesia: None Noted
[2018-05-15] MEDS: GABAPENTIN 300 MG CAP PO SCH (21:13)
[2018-05-15] MEDS: FAMOTIDINE 20 MG TAB PO SCH (21:14)
[2018-05-15] MEDS: HYDROCODONE/APAP 5/325 TAB PO PRN ×2 (21:15→22:32)
[2018-05-15] MEDS: SENNOSIDES/DOCUSATE SODIUM TAB PO SCH (21:15)
[2018-05-15] MEDS: DEXAMETHASONE 4 MG/ML VIAL IVP SCH (22:15)
[2018-05-15] MEDS: ceFAZolin 2 GM/DEXTROSE 100 ML IV SCH (22:15)
[2018-05-16 04:33] LABS: PLATELET COUNT 272 10^3/uL (150-400)
--- NOTE | 2018-05-16 05:31 | GOP ---
DATE OF OPERATION: 05/15/2018 SURGEON: Kimani Mora MD FOOD COUNSELOR: Dimitri Nobles PA-C. ANESTHESIA: General. PREOPERATIVE DIAGNOSIS: 1. C3-C4 cervical stenosis with myelopathy. 2. Cervicalgia and progressive arm radiculopathy with weakness. POSTOPERATIVE DIAGNOSIS: 1. C3-C4 cervical stenosis with myelopathy. 2. Cervicalgia and progressive arm radiculopathy with weakness. PROCEDURE PERFORMED: 1. Anterior arthrodesis with approach to C3-C4. 2. C3-C4 diskectomy with bilateral foraminotomies and osteophytectomies and interbody fusion using 8 mm titanium coated PEEK cage with morselized autograft and allograft. 3. Anterior cervical fusion C3-C4 with a 19 mm Medtronic Zevo plate. 4. Use of intraoperative fluoroscopy, less than 1 hour physician time. 5. Use of neuromonitoring. 6. Use of the operating microscope. FINDINGS: per imaging SPECIMENS: None. ESTIMATED BLOOD LOSS: 20 mL. INDICATIONS: The patient is a 63-year-old gentleman, who was admitted to the medical service for arm pain, radiculopathy and progressive weakness. Imaging demonstrates severe spinal stenosis, C3-C4. In addition, some cervical spondylosis C4 through C7. After discussion of the risks, benefits, and treatment alternatives after failing nonoperative intervention, we decided to proceed forth with surgery as described above. DESCRIPTION OF PROCEDURE: The patient was brought to the operating theater and underwent general endotracheal anesthesia without complications. He had Venodynes, AGUSTÍN hose, and appropriate lines placed by Anesthesia. He was maintained supine on the operating table with his head in slight extension. His MAPS were maintained above 75 throughout until we completed the spinal decompression. Using live fluoroscopy and a spinal needle, we picked our entry point at the C3-C4 level. This was marked as a transverse incision on the right side of the neck. This area was prepped and draped in usual sterile surgical fashion. A time-out was completed per protocol. The patient received antibiotics within 1 hour of incision. The incision was taken down with the scalpel blade and using monopolar, taken down through subcutaneous tissues to the level of the platysma. The platysma was over-mined in the cranial and caudal direction. A Weitlaner was placed to maintain our exposure. Using both blunt and sharp dissection, we traveled in a plane medial to the carotid sheath and lateral to the esophagus and trachea to reach the prevertebral fascia. We placed a bayoneted needle into the disk space of C3-C4 and confirmed our level using live fluoroscopy. We elevated the longus colli muscle from the anterior vertebral bodies of C3 and C4 and deep retractors were placed to maintain our exposure. The microscope was brought into the field to assist with microscopic dissection and to maintain illumination and magnification. We placed a [place] pin into the vertebral body of C3 and C4 and placed C3-C4 into mild distraction. We completed a C3-C4 diskectomy with bilateral foraminotomies and osteophytectomies. We prepared the cartilaginous endplates and measured interbody space. We placed an 8 mm titanium coated PEEK cage fiilled with morselized autograft and allograft into the C3-C4 disk space. We removed the [place] pin, drilled down the anterior osteophytes, and secured a 19 mm Medtronic Zevo plate onto the vertebral bodies of C3 and C4. AP and lateral x- rays demonstrated good placement of the hardware. The wound was irrigated copiously with bacitracin irrigation. We then closed the wounds in multiple layers using Vicryl sutures for the deep layers and Dermabond for the skin. The patient's wounds were dressed sterilely. He was awakened, extubated, and taken to recovery room in stable condition. There were no complications and no noted changes on neuromonitoring throughout the procedure. COMPLICATIONS: None. The use of the surgical technology instructor was important to retracting and retracting critical structures during surgery. /[id number]/MODL MTDD
[2018-05-16] MEDS: LEVOTHYROXINE 112 MCG TAB PO SCH (05:56)
[2018-05-16] MEDS: ceFAZolin 2 GM/DEXTROSE 100 ML IV SCH (05:56)
[2018-05-16] MEDS: DEXAMETHASONE 4 MG/ML VIAL IVP SCH (05:56)
[2018-05-16] MEDS: GABAPENTIN 300 MG CAP PO SCH (05:57)
--- NOTE | 2018-05-16 06:16 | NEUSURGPN ---
Date of Surgery: 05/15/18 Post Op Day: 1 Assessment/Plan: Assessment: 63 yo male that is s/p ACDF C3/4 for cervical stenosis and myelopathy POD #1 Plan: -s/p ACDF C3/4: doing well this am with expected neck pain -UE is better, normal strength -neck is soft and supple with no induration, CDI -plan for dc when cleared from IM -ok for dc from our standpoint -pending xrays today and if ok we will sign off -per Dr Mora-ok to start DVT prophylaxis on POD #3 and ok for full anticoagulation on POD #5 -call with any questions or concerns -pt understands and agrees -PT/OT/ST -no collar needed -pt d/w Dr Mora as well Subjective: Awake and alert. NAD. Eating/drinking and voiding. No f/c/n/v/d. No gurrola/cp/ sob/abd or gu complaints. Objective: AFVSS/PERRRLA/EOMI no droop CN 2-12 grossly intact CDI neck soft and supple 5/5 BUE/BLE = Neuro Check Frequency: per routine Urinary Catheter in Place: No - Physician Discussed Patient with : [facility] Physical Exam - Vitals, I&O, Labs I and O 18 18 18 05:59 05:59 05:59 Intake Total 450 1500 Output Total 20 Balance 450 1480 Weight 89.9 kg Intake: Oral (ml) 450 500 IV Intake (ml) 1000 Output: Estimated Blood Loss (ml) 20 Other: Intake Quantity Yes Sufficient Number of Voids Toilet 2 2 Vital Signs Temp Pulse Resp BP Pulse Ox 36.4 C 85 18 129/87 H 97 05/16/18 04:00 05/16/18 04:00 05/16/18 04:00 05/16/18 04:00 05/16/18 04:00 Laboratory Results 05/16/18 04:22 05/16/18 04:22 ICD10 Worksheet Patient Problems: Problems Problem Status Onset Atrial fibrillation Acute Cervical spinal stenosis Acute Left arm numbness Acute Shoulder pain, bilateral Acute - ICD10 Problem Qualifiers (1) Cervical spinal stenosis
[2018-05-16] MEDS: FAMOTIDINE 20 MG TAB PO SCH (08:50)
[2018-05-16] MEDS: LISINOPRIL 40 MG TAB PO SCH (08:50)
[2018-05-16] MEDS: SENNOSIDES/DOCUSATE SODIUM TAB PO SCH (08:51)
[2018-05-16] MEDS: METOPROLOL TARTRATE 25 MG TAB PO SCH (08:52)
[2018-05-16] MEDS ORDERED: METOPROLOL TARTRATE 25 MG TAB PO ONE (10:19)
[2018-05-16] MEDS ORDERED: GABAPENTIN 300 MG CAP PO SCH (10:19)
--- NOTE | 2018-05-16 12:49 | ASDISCHSUM ---
Discharge Information Plan Status:Home with No Needs Medically Cleared to Leave:05/16/2018 Discharge Date:05/16/2018 CM D/C Disposition: ADT D/C Disposition:Home, Routine, Self-Care Projected Discharge Date:05/16/2018 Transportation at D/C: Discharge Delay Reason: Follow-Up Date:05/16/2018 Discharge Slot: Final Diagnosis: Placement Information Patient Contact Information Contact Name:DENTON Relationship: Address:[address] City:[place] Alternate Phone: State/Zip Code:[place] [address] Email: Financial Information Financial Class:Medicare Primary Plan Desc:MEDICARE INPATIENT Primary Plan Number:[id number] Secondary Plan Desc:[employer] PPO AND EPO Secondary Plan Number:[id number] Assessment Information LACE LACE Length of stay for Answers: 1 day current admission Comorbidities - select Answers: Opioid dependence all that apply / Chronic pain Other Notes: AFib; HTN # of Emergency department Answers: 1-2 visits in the last 6 months Score: 7 Date Signed: 05/16/2018 12:48 PM Electronically Signed By:Lizbeth Drake RN [facility] CM Progress Note CM Note CM Note Notes: Pts case discussed in tx rounds. Pt is a 63 y/o man admitted for new afib. PT has been ordered and awaiting recommendations. Pt may have a possible cardioversion tomorrow. Needs are TBD at this time. CM to follow. Plan: TBD Date Signed: 05/14/2018 11:26 AM Electronically Signed By:ANGIE Salazar [facility] CM Progress Note CM Note CM Note Notes: Pts case discussed in tx rounds. PT has cleared pt to d/c home without any needs. No other needs at this time. CM available for changes. Plan: Independent Date Signed: 05/15/2018 01:54 PM Electronically Signed By:ANGIE Salazar Intervention Information Intervention Type:*OTTO-Signed Date of Service:05/14/2018 10:58 AM Patient Type:Observation Staff Member:Iesha Razo Hours: Discipline: Severity: Comment:
--- NOTE | 2018-05-16 12:51 | ASMTCMCOM ---
CM Note CM Note Notes: Medically cleared for discharge to home. No needs identified. CM availble should needs arise. Plan: Home independently Date Signed: 05/16/2018 12:50 PM Electronically Signed By:Lizbeth Drake RN
[2018-05-16 13:37] VITALS: BP 116/80
[2018-05-16] MEDS ORDERED: METOPROLOL TARTRATE 25 MG TAB PO SCH (21:00)
--- NOTE | 2018-05-17 04:25 | GDS ---
DISCHARGE DIAGNOSES: 1. Severe cervical stenosis with cord compression causing myelopathy. 2. New onset atrial fibrillation. 3. Acute systolic congestive heart failure. Ejection fraction 45%. 4. Hypertension. 5. Obesity, body mass index 34. HISTORY: The patient is a 63-year-old male, who presented with neck pain with upper extremity weakne ss and incidentally was found to have new onset atrial fibrillation. Initially, it was thought these symptoms may all be an atypical onset of atrial fibrillation; however, he continued to have signific ant neurologic complaints, so an MRI of his cervical spine was obtained and did show evidences of sev ere cervical spinal stenosis with evidence of cord compression and edema. Neurosurgery was consulted . They brought him to surgery. This went well without any complication. He has been cleared by [facility] to discharge home. Cardiology saw him regarding his atrial fibrillation. Initially, there was a plan to cardiovert; how ever, when it was discovered that Neurosurgery was going to be required, the cardioversion was cancel ed. He is rate controlled on metoprolol. Per Surgery, it is okay to start anticoagulation in a few days. I will cancel the Lovenox bridge and just start him on warfarin to come up slowly as he recove rs from surgery. He will follow up with Cardiology and consider cardioversion as an outpatient after he has been anticoagulated for 30 days. Echo showed reduced ejection fraction of 45% which is new f or him. DISCHARGE MEDICATIONS: Please see computerized record for full detailed list. New medications: 1. Metoprolol 25 mg p.o. twice daily. 2. D Lo 5/325 one to 2 p.o. q.4 hours as needed. 3. Gabapentin 300 mg p.o. q.8. Discontinued medications: 1. Lovenox 100 mg subcu q.12. 2. Norvasc 10 mg p.o. daily. He will continue his: 1. Lisinopril/hydrochlorothiazide as he was prior to admission. 2. Okay to restart warfarin on May 20, but without a Lovenox bridge. DISCHARGE INSTRUCTIONS: 1. Follow up with Cardiology to consider cardioversion in 1 month. 2. Check INR 4-5 days after initiating warfarin. 3. Follow up with Dr. Mora in 2 weeks. 4. Follow up with Dr. Binh Amado in 2 weeks. Greater than 30 minutes' time spent arranging this discharge. Patient was seen and examined by me on the day of discharge. /[id number]/MODL
[2018-05-18] MEDS ORDERED: ENOXAPARIN 40 MG/0.4 ML SYR SC SCH (09:00)
== END 2018-05-16 15:08 | disposition home or self-care (01) | DRG 471 ==
LOC: CED 16:10 → CEDHOLD 17:13 → F2W 19:56 → OBSVTOIN 05-14 13:28
PROVIDERS: ADMIT Internal Medicine; ATTEND Internal Medicine
PROC: 0RT30ZZ Resection of Cervical Vertebral Disc, Open Approach (ICD-10-PCS; principal; 2018-05-15 16:15)
PROC: 4A1004G Monitoring of Central Nervous Electrical Activity, Intraoperative, Open Approach (ICD-10-PCS; principal; 2018-05-15 16:15)
PROC: 0RG10A0 Fusion of Cervical Vertebral Joint with Interbody Fusion Device, Anterior Approach, Anterior Column, Open Approach (ICD-10-PCS; principal; 2018-05-15 16:15)
DX: M50.11 Cervical disc disorder with radiculopathy, high cervical region (principal); I11.0 Hypertensive heart disease with heart failure; I50.21 Acute systolic (congestive) heart failure; M50.01 Cervical disc disorder with myelopathy, high cervical region; E86.9 Volume depletion, unspecified; I48.91 Unspecified atrial fibrillation; E66.9 Obesity, unspecified; E03.9 Hypothyroidism, unspecified; Z68.34 Body mass index [BMI] 34.0-34.9, adult; Z23 Encounter for immunization; Z72.0 Tobacco use
CPT/HCPCS: 71045-PO; 71275-PO; 74175-PO; 80048-PO; 84484-PO; 92610-GN; 97116-GP; 97161-GP; 97165-GO; 97530-GP; C1713; G0008; G0378; G8978-GP-CJ; G8979-GP-CI; G8980-GP-CI; G8987-GO-CI; G8988-GO-CH; G8996-GN-CH; G8997-GN-CH; G8998-GN-CH; J0690; J1100; J1170; J1650; J2250; J2370; J2704; J3010; J3360; Q9967

== ENCOUNTER → 2018-05-13 | Outpatient (CLI) | payer OTHER | LOC: CIMAGING 10:33 | PROVIDERS: ATTEND Family Medicine | DX: M50.322 Other cervical disc degeneration at C5-C6 level (principal); M50.323 Other cervical disc degeneration at C6-C7 level; M99.71 Connective tissue and disc stenosis of intervertebral foramina of cervical region; M62.81 Muscle weakness (generalized); R20.2 Paresthesia of skin; E03.9 Hypothyroidism, unspecified; I10 Essential (primary) hypertension; I48.91 Unspecified atrial fibrillation | CPT/HCPCS: 36415-PO; 72050-PO ==

== ENCOUNTER 2018-11-04 13:11 | Day surgery (SDC) | payer OTHER ==
[2018-11-04] MEDS ORDERED: MIDAZOLAM 2 MG/2 ML VIAL IVP ONE (13:12)
[2018-11-04] MEDS ORDERED: fentaNYL 100 MCG/2 ML INJ IVP ONE (13:12)
[2018-11-04] MEDS ORDERED: ATROPINE SULFATE 1 MG/10 ML SYR IVP ONE (13:12)
[2018-11-04] MEDS ORDERED: NS 500 ML IV ONE (13:12)
[2018-11-04 13:55] LABS: INR 1.39 (0.83-1.16); PROTIME(PATIENT) 16.5 SEC (12.0-15.0)
--- NOTE | 2018-11-04 14:08 | PDANEPAE ---
ANE History of Present Illness 63 yo for juan/cv ANE Past Medical History - Cardiovascular History Hx Hypertension: No Hx Arrhythmias: Yes Hx Chest Pain: No Hx Coronary Artery / Peripheral Vascular Disease: No Hx CHF / Valvular Disease: No Hx Palpitations: No Cardiovascular History Comment: new onset afib, cleared by cards EF45% - Pulmonary History Hx COPD: No Hx Asthma/Reactive Airway Disease: No Hx Recent Upper Respiratory Infection: No Hx Oxygen in Use at Home: No Hx Sleep Apnea: No - Endocrine History Hx Diabetes: No - Renal History Hx Renal Disorders: No - Liver History Hx Hepatic Disorders: No - Chronic Pain History Chronic Pain: Yes ANE Review of Systems Review of Systems: - Exercise capacity METS (RN): 3 METS ANE Patient History - Allergies Allergies/Adverse Reactions: No Known Allergies Allergy (Unverified 05/13/18 16:26) - Home Medications Home medications: home medication list seen and reviewed Home Medications: Hydrochlorothiazide [HCTZ (*)] 25 mg PO DAILY 05/13/18 [Last Taken 05/13/18] Levothyroxine [Synthroid 112 mcg (*)] 112 mcg PO DAILY06 05/13/18 [Last Taken ] Lisinopril [Zestril 40 mg (*)] 40 mg PO DAILY 05/13/18 [Last Taken 05/13/18] Warfarin Sodium [Coumadin 5MG (*)] 5 mg PO DAILY16 05/13/18 [Last Taken Unknown] Gabapentin [Neurontin 300 MG (*)] 300 mg PO TID 11/04/18 [Last Taken Unknown] - NPO status NPO Status: no food or drink >8 hours - Anes Hx Anes Hx: no prior problems - Smoking Hx Smoking Status: Former smoker ANE Labs/Vital Signs - Labs Result Diagrams: 11/04/18 13:25 - Vital Signs Height: 5 ft 4 in Weight: 96.162 kg ANE Physical Exam - Airway Neck exam: decreased ROM, spinal fusion Mallampati Score: Class 2 Mouth exam: dentures - Pulmonary Pulmonary: no respiratory distress - Cardiovascular Cardiovascular: regular rate and rhythym - ASA Status ASA Status: III ANE Anesthesia Plan Anesthesia Plan: GA with mask
[2018-11-04] MEDS ORDERED: PROPOFOL 200 MG/20 ML VIAL ONE (14:09)
--- NOTE | 2018-11-05 19:36 | CPEKG ---
Test Reason : OPEN Blood Pressure : / mmHG Vent. Rate : 089 BPM Atrial Rate : 133 BPM P-R Int : 158 ms QRS Dur : 092 ms QT Int : 380 ms P-R-T Axes : 000 -12 005 degrees QTc Int : 463 ms Atrial fibrillation Confirmed by Rodrigo Walter ([id number]) on 11/05/2018 7:35:41 PM Referred By: Iker Avalos Confirmed By:Rodrigo Walter
== END 2018-11-04 14:55 | disposition home or self-care (01) ==
LOC: FCATH 13:11
PROVIDERS: ATTEND Internal Medicine Cardiovascular Disease
DX: I48.91 Unspecified atrial fibrillation (principal); Z53.8 Procedure and treatment not carried out for other reasons; Z79.01 Long term (current) use of anticoagulants
CPT/HCPCS: J0461; J2704

== ENCOUNTER 2018-11-19 10:24 | Day surgery (SDC) | payer OTHER ==
[2018-11-19] MEDS ORDERED: MIDAZOLAM 2 MG/2 ML VIAL IVP ONE (10:28)
[2018-11-19] MEDS ORDERED: ATROPINE SULFATE 1 MG/10 ML SYR IVP ONE (10:28)
[2018-11-19] MEDS ORDERED: NS 500 ML IV ONE (10:28)
[2018-11-19 11:21] LABS: INR 1.5 (0.83-1.16); PROTIME(PATIENT) 17.4 SEC (12.0-15.0)
[2018-11-19] MEDS ORDERED: PROPOFOL/EMULSION 500 MG/50 ML BOTTLE IV ONE (11:45)
--- NOTE | 2018-11-19 14:30 | PDANEPAE ---
ANE Past Medical History - Cardiovascular History Hx Hypertension: No Hx Arrhythmias: Yes Hx Chest Pain: No Hx Coronary Artery / Peripheral Vascular Disease: No Hx CHF / Valvular Disease: No Hx Palpitations: No Cardiovascular History Comment: new onset afib, cleared by cards EF45% - Pulmonary History Hx COPD: No Hx Asthma/Reactive Airway Disease: No Hx Recent Upper Respiratory Infection: No Hx Oxygen in Use at Home: No Hx Sleep Apnea: No - Endocrine History Hx Diabetes: No Hypothyroid: Yes - Renal History Hx Renal Disorders: No - Liver History Hx Hepatic Disorders: No - Chronic Pain History Chronic Pain: Yes ANE Review of Systems Review of Systems: ANE Patient History - Allergies Allergies/Adverse Reactions: No Known Allergies Allergy (Unverified 05/13/18 16:26) - Home Medications Home Medications: Hydrochlorothiazide [HCTZ (*)] 25 mg PO DAILY 05/13/18 [Last Taken 11/18/18 08: 00] Levothyroxine [Synthroid 112 mcg (*)] 112 mcg PO DAILY06 05/13/18 [Last Taken 08:00] Lisinopril [Zestril 40 mg (*)] 40 mg PO DAILY 05/13/18 [Last Taken 11/18/18 08: 00] Warfarin Sodium [Coumadin 5MG (*)] 5 mg PO DAILY16 05/13/18 [Last Taken 04:45] Gabapentin [Neurontin 300 MG (*)] 300 mg PO TID 11/04/18 [Last Taken 11/18/18 16 :00] - Smoking Hx Smoking Status: Former smoker ANE Labs/Vital Signs - Labs Result Diagrams: 11/19/18 10:40 - Vital Signs Height: 163 cm Weight: 96.2 kg ANE Physical Exam - Airway Neck exam: FROM Mallampati Score: Class 2 Mouth exam: normal dental/mouth exam - Pulmonary Pulmonary: no respiratory distress, no rales or rhonchi, clear to auscultation - Cardiovascular Cardiovascular: irregularly irregular - ASA Status ASA Status: III ANE Anesthesia Plan Anesthesia Plan: GA with mask Total IV Anesthesia: Yes
--- NOTE | 2018-11-19 14:30 | POSTANESTH ---
Post Anesthetic Evaluation Cardiovascular Status: Normal, Stable Respiratory Status: Normal, Stable Level of Consciousness/Mental Status: Can Participate in Eval Pain Control: Adequate, Prn Tx Ordered Nausea/Vomiting Control: Adequate, Prn Tx Ordered Complications Possibly Related to Anesthesia: None Noted
--- NOTE | 2018-11-19 14:35 | PDGENHP ---
History & Physical Chief Complaint: persistent AFib History of Present Illness: persistent AFib Relevant Physical Exam: A+Ox4, irr irr/normal rate Cardiorespiratory Assessment: persistent AFib -> ARABELLA/cardioversion
[2018-11-19] MEDS ORDERED: ATROPINE SULFATE 1 MG/10 ML SYR ONE ×2 (14:38→14:41)
[2018-11-19] MEDS ORDERED: APIXABAN 5 MG TAB PO SCH (14:50)
[2018-11-19] MEDS ORDERED: APIXABAN 5 MG TAB ONE (14:58)
--- NOTE | 2018-11-19 15:08 | EPPROC ---
Electrophysiology Procedure Note: Date: 11/19/2018 Tester Operator: Jean-Pierre Bailey MD Procedures: Transesophageal echocardiography -64762 DC cardioversion -03609 Indications: 63-year-old male with persistent atrial fibrillation. He has been on Coumadin, but his INRs have been subtherapeutic. INR 1.5 today. Techniques: Following informed consent, the patient was brought to the procedure area, in a fasting nonsedated state, in AFib rhythm. Defibrillation pads were applied in an anteroposterior orientation. IV sedation was provided by the anesthesiology service. Transesophageal ECHO was performed, demonstrating the absence of left atrial appendage thrombus (see formal report for full details). After ensuring adequate sedation, a single 200 joule biphasic transcutaneous R-wave synchronized shock was delivered, resulting in termination of atrial fibrillation and resumption of sinus rhythm. The patient tolerated the procedure well. EBL: None Complications: None Assessment: Successful DC cardioversion of atrial fibrillation to sinus rhythm Plan: DC to home Discontinue Coumadin; start Eliquis 5 mg twice daily for at least 1 month post cardioversion Patient Problems: Problems Problem Status Onset Atrial fibrillation Acute Cervical spinal stenosis Acute Left arm numbness Acute Shoulder pain, bilateral Acute
--- NOTE | 2018-11-20 08:58 | ECHO ---
[email or web address] [id number] Main: [phone] Echocardiography Examination Transesophageal Name: KIN EDMONDS MR#: [id number] Study Date: 11/19/2018 Study Time: 12:30 PM Date of : 1955 Age: 63 year(s) Height: 162.6 cm (64 in.) Weight: 96.16 kg (212 lb.) BSA: 2.01 m2 Gender: Male Examination: ARABELLA Contrast: Image Quality: Adequate Rhythm: Heart Rate: BP: / Indication: Atrial Fibrillation Procedure Staff Referring Physician: Gritting Machine Operator: Robina Castro CARLY Reading Physician: Dmitry Bailey MD Requesting Provider: Ordering Physician: Dmitry Bailey MD Indication: Atrial Fibrillation Acute complication: None Conclusions Left Ventricle: Mildly reduced systolic left ventricular function. EF range is estimated at 40 % - 45 %. Left Atrium Appendage: Normal PW-Doppler flow pattern. No thrombus is identified. Findings Left Ventricle: Mildly reduced systolic left ventricular function. EF range is estimated at 40 % - 45 %. Left Atrium Appendage: Normal PW-Doppler flow pattern. No thrombus is identified. Mitral Valve: Mitral valve appears structurally normal. Aortic Valve: No aortic valve regurgitation. The aortic valve is trileaflet. Aorta: The aorta is normal. 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
--- NOTE | 2018-11-20 13:15 | CPEKG ---
Test Reason : OPEN Blood Pressure : / mmHG Vent. Rate : 096 BPM Atrial Rate : 192 BPM P-R Int : 149 ms QRS Dur : 093 ms QT Int : 362 ms P-R-T Axes : 000 001 032 degrees QTc Int : 458 ms Atrial fibrillation Ventricular premature complex Confirmed by Binh Amado ([id number]) on 11/20/2018 1:15:35 PM Referred By: Dmitry Bailey Confirmed By:Binh Amado
--- NOTE | 2018-11-20 13:18 | CPEKG ---
Test Reason : OPEN Blood Pressure : / mmHG Vent. Rate : 070 BPM Atrial Rate : 069 BPM P-R Int : 153 ms QRS Dur : 091 ms QT Int : 406 ms P-R-T Axes : 055 001 032 degrees QTc Int : 439 ms Sinus rhythm Confirmed by Binh Amado ([id number]) on 11/20/2018 1:18:02 PM Referred By: Dmitry Bailey Confirmed By:Binh Amado
== END 2018-11-19 16:18 | disposition home or self-care (01) ==
LOC: FCATH 10:24
PROVIDERS: ATTEND Internal Medicine Cardiovascular Disease
PROC: 5A2204Z Restoration of Cardiac Rhythm, Single (ICD-10-PCS; principal; 2018-11-19)
PROC: B245ZZ4 Ultrasonography of Left Heart, Transesophageal (ICD-10-PCS; principal; 2018-11-19)
DX: I48.1 Persistent atrial fibrillation (principal); I10 Essential (primary) hypertension; E03.9 Hypothyroidism, unspecified; Z87.891 Personal history of nicotine dependence; Z79.01 Long term (current) use of anticoagulants; Z98.1 Arthrodesis status
CPT/HCPCS: J0461; J2704

== ENCOUNTER → 2018-12-16 | Outpatient (CLI) | payer OTHER | LOC: BHFA 15:30 | PROVIDERS: ATTEND Internal Medicine Cardiovascular Disease | DX: I48.91 Unspecified atrial fibrillation (principal) ==